=== PATIENT | female | born 1945 | race Hispanic/Latino ===

== ENCOUNTER 2018-03-28 07:16 | Day surgery (SDC) | payer OTHER ==
[~2018-03-28] VITALS: Ht 144.8 cm; Wt 78.7 kg
[~2018-03-28 07:16] MED LIST: SODIUM CHLORIDE 0.9% 1000ML 1,000 ML IV ONE
[2018-03-28 08:08] VITALS: BP 106/34
[2018-03-28] MEDS ORDERED: MULT-1296 PO (08:35)
[2018-03-28] MEDS ORDERED: CYAN10009 PO (08:35)
[2018-03-28] MEDS ORDERED: FURO40TA5 PO (08:35)
[2018-03-28] MEDS ORDERED: TRAM50TA4 PO (08:35)
[2018-03-28] MEDS ORDERED: FERR325T22 PO (08:35)
[2018-03-28] MEDS ORDERED: LISI10TA7 PO (08:35)
[2018-03-28] MEDS ORDERED: SPIR25TA PO (08:35)
[2018-03-28] MEDS ORDERED: VITA1CAP85 PO (08:35)
[2018-03-28] MEDS ORDERED: PROP10TA10 PO (08:35)
[2018-03-28] MEDS ORDERED: LACT10SO32 PO (08:35)
[2018-03-28] MEDS ORDERED: PANT40TA25 PO (08:35)
[2018-03-28] MEDS ORDERED: PROPOFOL 10 MG/ML 20ML VIAL IV ONE (09:10)
[2018-03-28 09:23] VITALS: BP 84/41
[2018-03-28 09:25] VITALS: BP 87/36
[2018-03-28 09:32] VITALS: BP 89/37
[2018-03-28 09:37] VITALS: BP 97/39
[2018-03-28 09:57] VITALS: BP 119/36
--- NOTE | 2018-03-28 10:05 | NUR ---
D/C INSTRUCTIONS GIVEN TO PT SON, GAVE COPY OF REPORT EXPLAINED TO SON AND PT HAS A FOLLOW UP APPOINTMENT WITH REGARDING BIOPSY RESULTS OF PROCEDURE IN ONE WEEK, DATE/TIME GIVEN TO PT. COPY OF POST CARE INSTRUCTIONS GIVEN TO SON, INSTRUCTED TO GIVE TO THE [facility] AID AT THE FACILITY ALONG WITH PT REPORT. PT AND SON VERBALIZED UNDERSTANDING, PT DRESSED PLACED IN HER PERSONAL WHEELCHAIR, DRIVEN HOME BY SON BACK TO NURSING FACILITY.
== END 2018-03-28 10:05 ==
LOC: ENDO 07:16 → DAH 07:16 → ENDO 10:05
PROVIDERS: ATTEND Internal Medicine
DX: K29.50 Unspecified chronic gastritis without bleeding (principal); I85.10 Secondary esophageal varices without bleeding; K31.89 Other diseases of stomach and duodenum; I10 Essential (primary) hypertension; E66.9 Obesity, unspecified; Z90.710 Acquired absence of both cervix and uterus; Z98.890 Other specified postprocedural states; Z79.899 Other long term (current) drug therapy; D50.9 Iron deficiency anemia, unspecified; Z86.010 Personal history of colon polyps; Z88.0 Allergy status to penicillin; Z88.8 Allergy status to other drugs, medicaments and biological substances; K74.60 Unspecified cirrhosis of liver; R18.8 Other ascites
CPT/HCPCS: 43239; 88305; 93005; A4606; J2704; J7030